=== PATIENT | female | born 1995 | race Caucasian/White ===

== ENCOUNTER 2017-11-29 13:00 | Emergency (ER) | payer OTHER ==
[~2017-11-29] VITALS: Ht 162.6 cm; Wt 61.2 kg
[2017-11-29 13:16] VITALS: Ht 162.6 cm; Wt 61.2 kg
[2017-11-29 14:48] LABS: BASOPHIL % 0.8 % (0-2); PLATELET COUNT 283 x10^3mcL (130-400); RED CELL DISTRIBUTION WIDTH 14.2 % (11.5-14.5)
[2017-11-29 15:01] LABS: ALBUMIN 3.7 g/dL (3.4-5.0); ALKALINE PHOSPHATASE 83 U/L (46-116); ALT/SGPT 19 U/L (14-59); AST/SGOT 17 U/L (15-37); BILIRUBIN TOTAL 0.3 mg/dL (0.20-1.00); C REACTIVE PROTEIN 2.6 mg/dL (<=0.9); CHLORIDE SERUM 105 mmol/L (98-107); CREATININE SERUM 0.8 mg/dL (0.6-1.0); GFR1 > 60 mL/min; POTASSIUM SERUM 4.1 mmol/L (3.5-5.1); SODIUM SERUM 138 mmol/L (136-145); TOTAL PROTEIN, SERUM 7.6 g/dL (6.4-8.2)
[2017-11-29 15:07] LABS: CALCIUM 8.9 mg/dL (8.5-10.1); CARBON DIOXIDE 28.4 mmol/L (21-32); GLUCOSE SERUM 95 mg/dL (74-106)
[2017-11-29 15:37] LABS: ERYTHROCYTE SED RATE 29 mm/hr (0-20)
[2017-11-29 16:37] VITALS: BP 103/74
== END 2017-11-29 16:37 | disposition home or self-care (01) ==
LOC: ED 13:00
PROVIDERS: Specialist
DX: E28.2 Polycystic ovarian syndrome (principal); Z88.0 Allergy status to penicillin
CPT/HCPCS: 36415; 87491; 87591